=== PATIENT | female | born 1985 | race Two or more races ===

== ENCOUNTER 2016-08-31 18:05 | Emergency (ER) | payer SELFPAY ==
[~2016-08-31] VITALS: Ht 162.6 cm; Wt 108.7 kg
[2016-08-31 19:09] LABS: ASPARTATE AMINO TRANSFERASE 19 U/L (15-37); BLOOD UREA NITROGEN 15 mg/dL (7-18)
[2016-08-31] MEDS ORDERED: DIAZEPAM 5 MG TABLET ONE (19:25)
[2016-08-31] MEDS ORDERED: KETOROLAC 30 MG/1 ML ONE (19:25)
[2016-08-31] MEDS ORDERED: DIAZEPAM 5 MG TABLET PO ONE (19:30)
[2016-08-31] MEDS ORDERED: KETOROLAC 30 MG/1 ML IM ONE (19:30)
[2016-08-31 20:16] VITALS: BP 123/80
== END 2016-08-31 20:18 | disposition home or self-care (01) ==
LOC: ED 20:10
DX: S39.012A Strain of muscle, fascia and tendon of lower back, initial encounter (principal); X58.XXXA Exposure to other specified factors, initial encounter; Y93.89 Activity, other specified; Y92.89 Other specified places as the place of occurrence of the external cause; Y99.2 Volunteer activity
CPT/HCPCS: 36415; 80053; 81003; 85025; 96372; 99284; J1885

== ENCOUNTER → 2016-12-13 | Outpatient (CLI) | payer MEDICAID | END | disposition home or self-care (01) | LOC: CFH 12:21 | PROVIDERS: ATTEND Family Medicine | DX: R10.2 Pelvic and perineal pain (principal); G89.29 Other chronic pain | CPT/HCPCS: 76830 ==